=== PATIENT | female | born 1950 | race Caucasian/White ===

== ENCOUNTER 2018-01-08 01:18 | Outpatient (CLI) | payer MEDICARE, SELFPAY ==
--- NOTE | 2018-01-08 10:50 | DI.MRI_ITS ---
SYMPTOMS/DIAGNOSIS: CHRONIC MIGRAINE, G43.709 MRI OF THE BRAIN: There are no prior comparison exams. T2 sagittal, T1, T2, FLAIR, diffusion and gradient-echo axial sequences were performed. There is a small area of high signal in the right frontal lobe in the white matter, likely representing sequelae of small vessel disease. No acute infarct, hemorrhage or mass is seen. The ventricles are normal in size. The orbits and sinuses are unremarkable. The vascular flow voids appear intact. 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 No acute abnormality.
== END 2018-01-08 01:38 ==
PROVIDERS: PCP Family Medicine; Visit Provider Family Medicine
DX: G43.709 Chronic migraine without aura, not intractable, without status migrainosus (principal)
CPT/HCPCS: 70551

== ENCOUNTER 2019-02-10 08:34 | Outpatient (REF) | payer MEDICARE, SELFPAY ==
[2019-02-10 13:29] LABS: HCT 43.3 % (36.0-46.0); HGB 14.3 g/dL (12.0-15.5); Mean Corpuscular Hemoglobin 29.5 pg (27.0-33.0); Mean Corpuscular Volume 89.3 fL (80-95); Mean Platelet Volume 9.3 fL (8.0-11.0); Platelet Count 338 x1000/uL (130-400); RBC 4.85 m/cumm (4.00-5.20); RBC Distribution Width 13.2 % (11.7-14.6); White Blood Cell Count 5.98 k/cumm (4.4-10.8)
[2019-02-10 14:16] LABS: ALT 34 U/L (14-59); AST 23 U/L (15-37); Alkaline Phosphatase 66 U/L (46-116); Anion Gap 9.2 mmol/L (3-11); BUN 14 mg/dL (7-18); Bilirubin, Total 0.5 mg/dL (0.2-1.0); CO2 27.8 mmol/L (21.0-32.0); Calcium 8.9 mg/dL (8.5-10.1); Calculated LDL 160 mg/dL; Chloride 103 mmol/L (98-107); Cholesterol 244 mg/dL (50-200); Glucose 85 mg/dL (70-100); HDL Cholesterol 73 mg/dL (40-60); Potassium 4.3 mmol/L (3.5-5.1); Sodium 140 mmol/L (136-145); TSH (W/Ref FT4) 1.71 uIU/mL (0.36-3.74); Total Protein 6.9 g/dL (6.4-8.2); Triglyceride 58 mg/dL (30-150)
== END 2019-02-10 08:54 ==
LOC: NCHCN 08:34
PROVIDERS: PCP Family Medicine; Visit Provider Family Medicine
DX: E78.5 Hyperlipidemia, unspecified (principal); R53.83 Other fatigue; R73.9 Hyperglycemia, unspecified
CPT/HCPCS: 80053; 80061; 85027; 84443

== ENCOUNTER 2019-12-24 14:41 | Outpatient (REF) | payer MEDICARE, SELFPAY ==
[2019-12-31 07:51] LABS: Campylobacter PCR Negative (Negative); Salmonella PCR Negative (Negative); Shiga Toxin PCR Negative (Negative); Shigella/Enteroinvasive Ecoli Negative (Negative)
== END 2019-12-24 15:01 ==
LOC: NCHCN 14:41
PROVIDERS: PCP Family Medicine; Visit Provider Family Medicine
DX: R19.7 Diarrhea, unspecified (principal)
CPT/HCPCS: 87505; 87177

== ENCOUNTER 2020-12-14 13:05 | Outpatient (REF) | payer MEDICARE, SELFPAY ==
[2020-12-14 14:03] LABS: HGB 14.3 g/dL (11.2-15.7); MCH 29.9 pg (27.0-33.0); MCHC 32.5 % (32.0-36.0); MCV 92.1 fL (80-95); MPV 9.4 fL (8.0-11.0); Platelet Count 310 10^3/uL (130-400); RBC 4.78 10^6/uL (3.93-5.22); RDW 12.4 % (11.7-14.6); RDW-SD 42.3 fL; WBC 6.37 10^3/uL (4.4-10.8)
[2020-12-14 14:26] LABS: ALT 23 U/L (14-59); AST 17 U/L (15-37); Alkaline Phosphatase 73 U/L (46-116); Anion Gap 8.8 mmol/L (3-11); BUN 13 mg/dL (7-18); Bilirubin, Total 0.5 mg/dL (0.2-1.0); CO2 26.2 mmol/L (21.0-32.0); CREATININE 0.8 mg/dL (0.55-1.02); Calcium 9.1 mg/dL (8.5-10.1); Calculated LDL 190 mg/dL (<100); Chloride 107 mmol/L (98-107); Cholesterol 272 mg/dL (<200); Glucose 92 mg/dL (74-106); HDL Cholesterol 72 mg/dL (40-60); Potassium 4.6 mmol/L (3.5-5.1); Sodium 142 mmol/L (136-145); Total Protein 6.9 g/dL (6.4-8.2); Triglyceride 50 mg/dL (<150)
[2020-12-14 14:44] LABS: Hemoglobin A1C 5.9 % (<5.7)
== END 2020-12-14 13:06 | disposition home or self-care (01) ==
LOC: NCHCN 13:05
PROVIDERS: PCP Family Medicine; Visit Provider Family Medicine
DX: E78.5 Hyperlipidemia, unspecified (principal); R73.03 Prediabetes; R53.83 Other fatigue
CPT/HCPCS: 80053; 80061; 85027; 83036